=== PATIENT | female | born 1955 | race Caucasian/White ===

== ENCOUNTER 2022-12-06 15:38 | Emergency (ER) | payer OTHER ==
[~2022-12-06] VITALS: Ht 160 cm; Wt 75.7 kg
[2022-12-06 16:02] VITALS: BP 140/70; PULSE 79; RESP 17; TEMP 97.4; O2SAT 97
[2022-12-06] MEDS ORDERED: ACETAMINOPHEN EXTRA STRENGTH 500 MG TAB PO ONE (16:50)
--- NOTE | 2022-12-06 16:56 | NUR ---
PT TAKEN TO XRAY VIA WHEELCHAIR
[2022-12-06] MEDS ORDERED: ACET-10509 PO (17:47)
[2022-12-06 18:03] VITALS: BP 140/70; PULSE 79; RESP 17; TEMP 97.4; O2SAT 97
--- NOTE | 2022-12-06 18:04 | NUR ---
Patient discharged with v/s stable. Written and verbal after care instructions given and explained. Patient alert, oriented and verbalized understanding of instructions. Ambulatory with steady gait. All questions addressed prior to discharge. ID band removed. Patient advised to follow up with PMD. Rx of TYLENOL (SENT) given. Patient educated on indication of medication including possible reaction and side effects. Opportunity to ask questions provided and answered.
== END 2022-12-06 18:04 | disposition home or self-care (01) ==
LOC: MED 15:38
DX: S46.811A Strain of other muscles, fascia and tendons at shoulder and upper arm level, right arm, initial encounter (principal); S20.211A Contusion of right front wall of thorax, initial encounter; I10 Essential (primary) hypertension; Z88.5 Allergy status to narcotic agent; Z79.899 Other long term (current) drug therapy; V49.88XA Car occupant (driver) (passenger) injured in other specified transport accidents, initial encounter; Y93.89 Activity, other specified; Y92.89 Other specified places as the place of occurrence of the external cause; Y99.8 Other external cause status
CPT/HCPCS: 71045; 99283